=== PATIENT | female | born 2000 | race African-American/Black ===

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

== ENCOUNTER 2022-12-06 17:27 | Outpatient (REF) | payer MEDICAID, SELFPAY ==
[2022-12-06 17:32] LABS: Abs Immature Grans 0.04 10^3/uL (0.0-0.06); Absolute Basophil Count 0.04 10^3/uL (0.0-0.2); Absolute Eosinophil Count 0.19 10^3/uL (0.0-0.7); Absolute Lymphocyte Count 3.67 10^3/uL (1.2-3.4); Absolute Monocyte Count 0.72 10^3/uL (0.1-0.8); Absolute Neutrophil Count 5.75 10^3/uL (1.2-6.7); Basophils % 0.4; Eosinophils % 1.8; HCT 38.9 % (36.0-46.0); HGB 13.3 g/dL (11.2-15.7); Immature Grans % 0.4; Lymphocytes % 35.3; MCH 30.4 pg (27.0-33.0); MCHC 34.2 % (32.0-36.0); MCV 89 fL (80-95); MPV 9.4 fL (8.0-11.0); Monocytes % 6.9; Neutrophils % 55.2; Platelet Count 333 10^3/uL (130-400); RBC 4.37 10^6/uL (3.93-5.22); RDW 12.6 % (11.7-14.6); RDW-SD 41.7 fL; WBC 10.41 10^3/uL (4.4-10.8)
[2022-12-06 19:00] LABS: D-Dimer 130 ng/mlFEU (<500)
== END 2022-12-06 17:28 | disposition home or self-care (01) ==
LOC: LBN 17:27
PROVIDERS: PCP Nurse Practitioner Family; Visit Provider Nurse Practitioner Family
DX: J45.21 Mild intermittent asthma with (acute) exacerbation (principal)
CPT/HCPCS: 85025; 85379

== ENCOUNTER → 2022-12-06 17:54 | Outpatient (CLI) | payer MEDICAID, SELFPAY ==
--- NOTE | 2022-12-06 | DI.RAD_ITS ---
Exam(s) XR CHEST 2V PA LATERAL EXAM: XR CHEST 2V PA LATERAL CLINICAL HISTORY: [id number] TECHNIQUE: 2D digital imaging was performed. COMPARISON: No exams were available for comparison FINDINGS: HEART: Normal size. Aorta: Not dilated. PULMONARY VASCULATURE: Normal. LUNGS: Clear. PLEURAL SPACE: No pleural effusion or pneumothorax. BONE:Unremarkable for age. IMPRESSION: No acute abnormality. DATA REPOSITORY: RADIATION DOSE DELIVERED:
--- NOTE | 2022-12-06 17:41 | DI.VRAD_ITS ---
PROCEDURE INFORMATION: Exam: XR Chest Exam date and time: 12/06/2022 5:14 PM Age: 22 years old Clinical indication: Cough TECHNIQUE: Imaging protocol: Radiologic exam of the chest. Views: 2 views. COMPARISON: CR XR SCAPULA RT 12/26/2020 11:44 PM FINDINGS: Lungs: Unremarkable. No consolidation. Pleural spaces: Unremarkable. No pleural effusion. No pneumothorax. Heart/Mediastinum: Unremarkable. No cardiomegaly. Bones/joints: Unremarkable. IMPRESSION: No acute findings. Dictated and Authenticated by: Josh Ardon MD. Ordering:TREVER MCPHERSON MD
== END ==
PROVIDERS: PCP Nurse Practitioner Family; Visit Provider Nurse Practitioner Family
DX: J45.21 Mild intermittent asthma with (acute) exacerbation (principal)
CPT/HCPCS: 71046

== ENCOUNTER 2023-04-06 16:03 | Outpatient (REF) | payer MEDICAID, SELFPAY ==
[2023-04-08 14:11] LABS: Chlamydia Result Negative (Negative); GC Result Negative (Negative)
== END 2023-04-06 16:04 | disposition home or self-care (01) ==
LOC: LBN 16:03
PROVIDERS: PCP Nurse Practitioner Family; Visit Provider Advanced Practice Midwife
DX: N76.0 Acute vaginitis (principal); R10.2 Pelvic and perineal pain; Z11.3 Encounter for screening for infections with a predominantly sexual mode of transmission
CPT/HCPCS: 87491; 87591; 87480; 87510; 87660

== ENCOUNTER 2023-05-05 10:30 | Emergency (ER) | payer MEDICAID, SELFPAY ==
[2023-05-05 10:35] VITALS: BP 113/78; PULSE 78; RESP 18; TEMP 36.7; O2SAT 98
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
[2023-05-05 11:40] LABS: Abs Immature Grans 0.01 10^3/uL (0.0-0.06); Absolute Basophil Count 0.07 10^3/uL (0.0-0.2); Absolute Eosinophil Count 0.12 10^3/uL (0.0-0.7); Absolute Lymphocyte Count 2.45 10^3/uL (1.2-3.4); Absolute Monocyte Count 0.56 10^3/uL (0.1-0.8); Absolute Neutrophil Count 6.76 10^3/uL (1.2-6.7); Basophils % 0.7; Eosinophils % 1.2; HCT 38.6 % (36.0-46.0); HGB 13.2 g/dL (11.2-15.7); Immature Grans % 0.1; Lymphocytes % 24.6; MCH 29.9 pg (27.0-33.0); MCHC 34.2 % (32.0-36.0); MCV 87 fL (80-95); MPV 9.6 fL (8.0-11.0); Monocytes % 5.6; Neutrophils % 67.8; Platelet Count 322 10^3/uL (130-400); RBC 4.42 10^6/uL (3.93-5.22); RDW 12.3 % (11.7-14.6); RDW-SD 39.8 fL; WBC 9.97 10^3/uL (4.4-10.8)
[2023-05-05] MEDS: Normal Saline - Diluent 50 ML VIAL IJ (11:41)
[2023-05-05 11:42] LABS: Bilirubin Negative (Negative); Blood Negative (Negative); Clarity Clear (Clear); Glucose Negative (Negative); Ketones Negative (Negative); Leukocyte Esterase Negative (Negative); Nitrite Negative (Negative); Specific Gravity 1.025 (1.005-1.025)
[2023-05-05] MEDS: Omnipaque 350 MG/ML 500 ML BTL-Imaging package IJ (11:46)
[2023-05-05 11:51] LABS: ALT 22 U/L (14-59); AST 17 U/L (15-37); Albumin 3.7 g/dL (3.4-5.0); Alkaline Phosphatase 75 U/L (46-116); Anion Gap 9.1 mmol/L (3-11); BUN 16 mg/dL (7-18); Bilirubin, Total 0.4 mg/dL (0.2-1.0); CO2 23.9 mmol/L (21.0-32.0); CREATININE 0.6 mg/dL (0.55-1.02); Calcium 9.1 mg/dL (8.5-10.1); Chloride 106 mmol/L (98-107); Glucose 97 mg/dL (74-106); Lipase 18 U/L (16-77); Potassium 4.1 mmol/L (3.5-5.1); Sodium 139 mmol/L (136-145); Total Protein 7.8 g/dL (6.4-8.2)
--- NOTE | 2023-05-05 12:05 | DI.RAD_ITS ---
Exam(s) XR CHEST 2V PA LATERAL EXAM: XR CHEST 2V PA LATERAL CLINICAL HISTORY: left back pain TECHNIQUE: 2D digital imaging was performed of the chest. Two images were obtained. PA and lateral views were obtained. COMPARISON: CR,XR XR CHEST 2V PA LATERAL from 12/06/2022 FINDINGS: MEDIASTINUM: Normal. HEART: Normal. PULMONARY VASCULATURE: Normal. LUNGS: Clear. PLEURAL SPACE: No pleural effusion or pneumothorax. BONE:Within normal limits for the patient's age. OTHER FINDINGS:Normal. IMPRESSION: No acute pulmonary findings. DATA REPOSITORY: RADIATION DOSE DELIVERED:
[2023-05-05] MEDS: ACETAMINOPHEN 1,000 MG/100 ML BTL 400 MG IVPB (13:44)
[2023-05-05 13:45] VITALS: BP 118/68; PULSE 70; RESP 16; TEMP 37.4; O2SAT 97
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
== END 2023-05-05 13:55 | disposition home or self-care (01) ==
PROVIDERS: Emergency Provider Physician Assistant; PCP Nurse Practitioner Family
DX: S06.0X0A Concussion without loss of consciousness, initial encounter (principal); S39.011A Strain of muscle, fascia and tendon of abdomen, initial encounter; M54.2 Cervicalgia; M54.50 Low back pain, unspecified; V47.5XXA Car driver injured in collision with fixed or stationary object in traffic accident, initial encounter
CPT/HCPCS: 36415; 80048; 80053; 81025; 83690; 86850; 86900; 86901; 96374; 99285; 70450; 71046; 72125; 74177; 81003; 85025; 99284; J0131

== ENCOUNTER 2023-10-16 01:30 | Emergency (ER) | payer MEDICAID, SELFPAY ==
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
[2023-10-16 02:06] VITALS: BP 139/93; PULSE 98; RESP 14; TEMP 37; O2SAT 98
[2023-10-16 02:31] LABS: *AMPHETAMINES SCREEN URINE Negative (Negative); *BARBITURATES SCREEN URINE Negative (Negative); *BENZODIAZEPINES SCREEN URINE Negative (Negative); Cannabinoids THC Negative (Negative); Cocaine Screen,Urine Negative (Negative); METHADONE URINE SCREEN Negative (Negative); OPIATES URINE SCREEN Negative (Negative)
[2023-10-16 02:34] LABS: Tricyclic Antidepressants Negative (Negative)
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
[2023-10-16 03:08] LABS: COVID-19 PCR Negative (Negative); Influenza A PCR Negative (Negative); Influenza B PCR Negative (Negative); RSV PCR Negative (Negative)
[2023-10-16 03:10] LABS: ALT 30 U/L (14-59); AST 16 U/L (15-37); Albumin 3.6 g/dL (3.4-5.0); Alkaline Phosphatase 74 U/L (46-116); Anion Gap 7.7 mmol/L (3-11); BUN 18 mg/dL (7-18); Bilirubin, Total 0.23 mg/dL (0.2-1.0); CO2 26.3 mmol/L (21.0-32.0); CREATININE 1.3 mg/dL (0.55-1.02); Calcium 8.8 mg/dL (8.5-10.1); Chloride 105 mmol/L (98-107); Glucose 102 mg/dL (74-106); Potassium 3.7 mmol/L (3.5-5.1); Sodium 139 mmol/L (136-145); Total Protein 7.6 g/dL (6.4-8.2)
[2023-10-16 03:11] LABS: ETHANOL BLOOD < 3.0 mg/dL (<10)
[2023-10-16 03:12] LABS: Source Nasopharynx
[2023-10-16 03:18] LABS: TSH (W/Ref FT4) 3.27 uIU/mL (0.36-3.74)
[2023-10-16 03:21] LABS: Abs Immature Grans 0.03 10^3/uL (0.0-0.06); Absolute Basophil Count 0.05 10^3/uL (0.0-0.2); Absolute Eosinophil Count 0.33 10^3/uL (0.0-0.7); Absolute Lymphocyte Count 3.78 10^3/uL (1.2-3.4); Absolute Neutrophil Count 4.51 10^3/uL (1.2-6.7); Basophils % 0.5 %; Eosinophils % 3.6 %; HCT 38.7 % (36.0-46.0); HGB 13.1 g/dL (11.2-15.7); Immature Grans % 0.3 %; Lymphocytes % 41.1 %; MCH 30.1 pg (27.0-33.0); MCHC 33.9 % (32.0-36.0); MCV 89 fL (80-95); MPV 9.8 fL (8.0-11.0); Monocytes % 5.4 %; Neutrophils % 49.1 %; Platelet Count 305 10^3/uL (130-400); RBC 4.35 10^6/uL (3.93-5.22); RDW 12.1 % (11.7-14.6); RDW-SD 39.8 fL
[2023-10-16 03:43] LABS: Salicylate < 2.8 mg/dL (<2.8)
[2023-10-16 03:51] LABS: Acetaminophen < 2 ug/mL (10-30)
== END 2023-10-16 03:54 | disposition home or self-care (01) ==
PROVIDERS: Emergency Provider Student in an Organized Health Care Education/Training Program; PCP Registered Nurse Critical Care Medicine
DX: R45.851 Suicidal ideations (principal); F32.A Depression, unspecified
CPT/HCPCS: 80053; 80307; 81025; 87637; 99284; 80320; 80329; 84443; 85025

== ENCOUNTER 2023-12-17 11:02 | Emergency (ER) | payer MEDICAID, SELFPAY ==
[2023-12-17 11:07] VITALS: BP 107/72; PULSE 76; RESP 12; TEMP 36.7; O2SAT 98
[2023-12-17 11:30] LABS: Bilirubin Negative (Negative); Blood Negative (Negative); Clarity Clear (Clear); Glucose Negative (Negative); Ketones Negative (Negative); Leukocyte Esterase Trace (Negative); Nitrite Negative (Negative); Urobilinogen 0.2 mg/dL (Up to 0.2); pH 7.5 (5-8)
--- NOTE | 2023-12-17 11:30 | ED.GENADUL_ITS ---
Discharge Plan Disposition Patient Disposition: Home Discharge Details Clinical Impression: Pelvic pain Primary Care Provider: Coral Love ED Provider: Edna Sun Home Meds and New Rx's Prescriptions: No Action No Known Home Meds Discharge Instructions Additional Instructions: I have provided an outpatient ultrasound order. Diagnostic imaging will be [facility] you tomorrow to schedule an appointment to have this performed. Please call [facility] first thing in the morning to schedule follow-up appointment for further evaluation into your left lower quadrant pain. Return to emergency care if you develop new severe abdominal pain, associated fever/chills or vomiting associated pelvic pain, or if you are very worried and need to be rechecked again immediately Referrals: [facility] [Provider Group] Discharge Data Discharge Date/Time-TO BE ENTERED AT DEPARTURE: 12/17/23 12:00 HPI General Date/Time Provider Initiated Documentation: 12/17/23 11:09 . HPI Narrative: Etelvina is a 23-year-old female who presents to the emergency department today for evaluation of left lower quadrant pain. She reports that this started about 2 months ago, is described as a severe sharp stabbing pain that comes and goes, has recently become more prominent in frequency and severity. Pain is aggravated by twisting/bending or other movement of the abdomen when it occurs. Last episode was today when she arrived to the emergency department, has now resolved. She denies associated fever/chills, anorexia, change in p.o. intake, nausea/vomiting, change in bowel or bladder function. She does report that she tends to have some vaginal bleeding or discharge after an episode of pain. She denies significant gynecologic history. No history of STIs, , or gynecologic surgery. She does have a Mirena in place. LMP was this month. No history of bleeding disorders Physical exam reassuring. Abdomen is soft, nondistended, nontender to palpation with normoactive bowel sounds. Speculum exam unremarkable, IUD strings visualized, scant dark vaginal blood noted. Cervix appears healthy. No obvious uterine or adnexal tenderness on bimanual exam. Easy work of breathing, lung sounds clear bilaterally. Normal heart sounds. Overall history and physical exam reassuring. DDx includes but is not limited to: Ovarian cyst, ovarian dysfunction, fibroid. hCG negative, early or related complications unlikely. No red flags concerning for acute intra-abdominal pathology such as ovarian torsion requiring emergent labs or diagnostic imaging such as CT scan or ultrasound at this time. Overall workup today reassuring. Recommend outpatient ultrasound, order provided. Advise follow-up with [facility] and calling diagnostic imaging to schedule appointment. Reviewed red flags indicate need for return to emergency care. She voices agreement with plan of care. 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 Review of Systems Narrative: see hpi Exam Const General: cooperative, healthy appearing, comfortable, no acute distress, well developed and well groomed Nutritional Appearance: average body habitus Orientation: alert and oriented x3 Resp Effort & Inspection: normal respiratory effort and able to speak in complete sentences Auscultation: clear to auscultation bilaterally Cardio Rate: regular rate Rhythm: regular rhythm GI Inspection: normal to inspection and non-distended Palpation: soft, not firm, no pulsatile masses, not rigid and nontender Auscultation: normal bowel sounds General: No CVA tenderness External Female Exam: normal external appearance Speculum Exam - Vagina: normal appearance of the vagina, normal vaginal discharge and no lacerations Speculum Exam - Cervix: normal appearance of the cervix and nontender Bimanual Exam- Vagina & Uterus: normal bimanual exam and No tender Bimanual Exam- Adnexa, other: normal adnexae Back/Spine/Pelvis Back: no CVA tenderness Skin General skin exam: no rashes or lesions noted Course Vital Signs Vital signs: Vital Signs Temperature 36.7 C 12/17/23 11:07 Pulse 76 12/17/23 11:07 Respiratory Rate 12 12/17/23 11:07 Blood Pressure 107/72 12/17/23 11:07 Pulse Oximetry 98 12/17/23 11:07 Temperature 36.7 C 12/17/23 11:07 Pulse 76 12/17/23 11:07 Respiratory Rate 12 12/17/23 11:07 Respiratory Effort Normal 12/17/23 11:13 Blood Pressure 107/72 12/17/23 11:07 Pulse Oximetry 98 12/17/23 11:07 Oxygen Delivery Method Room Air 12/17/23 11:07 Oxygen Flow Rate 0 12/17/23 11:07 Pain Level 8 12/17/23 11:07 Comment 910 at worse 12/17/23 11:07 Lab/Test Results Lab/Test Results: POC- Test(urine) Negative Medical Decision Making Quality:SDOH Health Related Social Needs: No Data to Display PFSH All Active Problems (Updated 12/17/23 @ 11:42 by Edna Ziegler) IUD (intrauterine device) in place (Acute) Pelvic pain (Acute) Anxiety (Chronic) Thoughts of self harm (Acute) Contusion (Acute) Medical History Encounter for insertion of mirena IUD Encounter for counseling regarding contraception Encounter for screening examination for sexually transmitted disease Vulvitis Concussion (~2020) Social History Smoking/Tobacco Use Status: Never Smoking risk assessment performed?: Yes Alcohol Intake: current Alcohol Intake frequency: holidays/special occasions only Drug use: Occasionally Substance use type: marijuana Housing: apartment Do you feel safe at home: Yes Do you feel safe in your relationship?: Yes
[2023-12-17 11:35] LABS: Epithelial Cells Many HPF (Negative); RBC 0-2 HPF (0-2)
[2023-12-17 11:36] LABS: Bacteria Rare HPF (Negative); C & S Indicated? No; Casts Negative LPF (Negative); Crystals Negative HPF (Negative); Mucus Trace (Negative)
--- NOTE | 2023-12-17 11:51 | NUR.NOTE ---
Faxed to [facility] request for US pelvic transvaginal for LLQ pain x 2 months, associated w/vaginal bleeding. R/O ovarian cyst. To follow up with [facility] in 1 to 2 weeks.Nursing Note:
[2023-12-17 12:00] VITALS: BP 107/72; PULSE 76; RESP 12; TEMP 36.7; O2SAT 98
== END 2023-12-17 12:00 | disposition home or self-care (01) ==
PROVIDERS: Emergency Provider Nurse Practitioner Family; PCP Registered Nurse Critical Care Medicine
DX: R10.32 Left lower quadrant pain (principal)
CPT/HCPCS: 80048; 81025; 99282; 81003; 81015; 85025; 99283

== ENCOUNTER 2024-06-19 15:55 | Emergency (ER) | payer MEDICAID, SELFPAY ==
[2024-06-19 15:56] VITALS: BP 142/95; PULSE 80; RESP 18; TEMP 36.9; O2SAT 97
--- NOTE | 2024-06-19 16:09 | W.ED.GENAD ---
Discharge Plan Disposition Patient Disposition: Home Condition: Stable Discharge Details Clinical Impression: Vaginal bleeding Primary Care Provider: Coral Love ED Provider: Delvis Zarate Home Meds and New Rx's Prescriptions: Continued sertraline 50 mg tablet 25 mg PO DAILY Patient Comments: TAKE 1 TABLET BY MOUTH DAILY X 1 WEEK THEN INCREASE TO 2 TABLETS DAILY Discharge Instructions Additional Instructions: Follow-up with [facility], he can call their office to arrange for follow-up appointment. If you feel more ill or have severe worsening abdominal pain return to the emergency department for reevaluation. I would recommend taking 400 mg of ibuprofen every 4 hours. HPI General Mode of arrival: ambulatory. Date/Time Provider Initiated Documentation: 06/19/24 15:58. Limitations to Documentation: no limitations. Information obtained by: patient. History of Present Illness 23 year old F presents to the emergency department with the chief complaint of vaginal bleeding, described as mild, Patient started experiencing this day(s) (1) and it has been constant. No relieving factors improve symptom(s), No exacerbating factors reported . Patient notes denies chest pain and shortness of breath. 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 Review of Systems All systems reviewed & are unremarkable except as noted in HPI and below Constitutional Constitutional: Denies chills, Denies fever(s) and Denies weakness Cardiovascular Cardiovascular: Denies chest pain and Denies dyspnea Respiratory Respiratory: Denies cough and Denies dyspnea Genitourinary Genitourinary: Reports other (vaginal bleeding) Neurologic Neurologic: Denies weakness Psychiatric Psychiatric: Denies depression Exam Const General: no acute distress Orientation: alert HENMT Head: normal to inspection Ears: external ears normal General nose exam: external nose normal Mouth: moist mucous membranes Eyes General: appearance normal, both eyes and all related structures Neck Neck: normal visual inspection Resp Effort & Inspection: normal respiratory effort and able to speak in complete sentences Cardio Rate: regular rate GI Palpation: soft and nontender Skin General skin exam: no rashes or lesions noted Neuro General: patient alert and patient oriented x3 Extrem General: normal to inspection Psych Mental Status: mental status grossly normal Course Vital Signs Vital signs: Vital Signs Temperature 36.9 C 06/19/24 15:56 Pulse 80 06/19/24 15:56 Respiratory Rate 18 06/19/24 15:56 Blood Pressure 142/95 H 06/19/24 15:56 Pulse Oximetry 97 06/19/24 15:56 Temperature 36.9 C 06/19/24 15:56 Temperature Source Oral 06/19/24 15:56 Pulse 80 06/19/24 15:56 Respiratory Rate 18 06/19/24 15:56 Blood Pressure 142/95 H 06/19/24 15:56 Blood Pressure Position Sitting 06/19/24 15:56 Pulse Oximetry 97 06/19/24 15:56 Oxygen Delivery Method Room Air 06/19/24 15:56 Oxygen Flow Rate 0 06/19/24 15:56 Pain Level 5 06/19/24 16:07 Medical Decision Making 23-year-old female with no significant chronic medical problems comes in with 1 day of vaginal bleeding and states she had a period 2 weeks ago. She says she does not normally have abnormal periods like this. She does still has some intermittent lower pelvic discomfort she says it feels like it is in her uterus. She denies any vomiting, fevers, chills. She is stable on arrival, she has no abdominal tenderness. Given her complaint will check a CBC CMP hCG and UA and reassess. Labs unremarkable patient feels significantly better after dose of Toradol. Given reassuring workup I feel she is stable and can follow-up with [facility], return precautions given Differential Diagnosis Differential Diagnosis: Fibroid, polyp, PCOS Lab Data Lab results reviewed: Yes I reviewed the patient's lab results. Quality:SDOH Health Related Social Needs: No Data to Display PFSH All Active Problems (Updated 06/19/24 @ 17:34 by Delvis Zarate MD) Vaginal bleeding (Acute) Toe pain, left (Acute) Depressive disorder (Chronic) Migraine (Chronic) Exercise-induced asthma (Acute) Chronic post-traumatic stress disorder (PTSD) (Acute) IUD (intrauterine device) in place (Acute) Pelvic pain (Acute) Anxiety (Chronic) Thoughts of self harm (Acute) Contusion (Acute) Medical History Encounter for insertion of mirena IUD Encounter for counseling regarding contraception Encounter for screening examination for sexually transmitted disease Vulvitis Concussion (~2020) Social History Smoking/Tobacco Use Status: Never Smoking risk assessment performed?: Yes Alcohol Intake: current Alcohol Intake frequency: holidays/special occasions only Drug use: Occasionally Substance use type: marijuana Housing: apartment Do you feel safe at home: Yes Do you feel safe in your relationship?: Yes
[2024-06-19 16:17] LABS: Bilirubin Negative (Negative); Blood Moderate (Negative); Clarity Clear (Clear); Glucose Negative (Negative); Ketones Trace mg/dL (Negative); Leukocyte Esterase Small (Negative); Nitrite Negative (Negative); Urobilinogen 0.2 mg/dL (Up to 0.2); pH 7.5 (5-8)
[2024-06-19] MEDS: Ketorolac 15 MG/ML VIAL IVP (16:24)
[2024-06-19 16:25] LABS: Abs Immature Grans 0.04 10^3/uL (0.0-0.06); Absolute Basophil Count 0.05 10^3/uL (0.0-0.2); Absolute Eosinophil Count 0.22 10^3/uL (0.0-0.7); Absolute Lymphocyte Count 1.41 10^3/uL (1.2-3.4); Absolute Monocyte Count 0.74 10^3/uL (0.1-0.8); Basophils % 0.5 %; HCT 38.3 % (36.0-46.0); Immature Grans % 0.4 %; MCH 29.5 pg (27.0-33.0); MCHC 33.9 % (32.0-36.0); MCV 87 fL (80-95); MPV 9.5 fL (8.0-11.0); Monocytes % 6.8 %; Neutrophils % 77.3 %; Platelet Count 347 10^3/uL (130-400); RDW 12.2 % (11.7-14.6); RDW-SD 39.3 fL; WBC 10.88 10^3/uL (4.4-10.8)
[2024-06-19 16:28] LABS: Bacteria Negative HPF (Negative); Crystals Negative HPF (Negative); Epithelial Cells Moderate HPF (Negative); RBC 0-2 HPF (0-2); WBC 0-2 HPF (0-5)
[2024-06-19 16:29] LABS: Absolute Neutrophil Count 8.41 10^3/uL (1.2-6.7)
[2024-06-19 16:29] LABS: C & S Indicated? No/Sq. Contamination; Casts Negative LPF (Negative); Mucus Trace (Negative)
[2024-06-19 16:53] LABS: ALT 33 U/L (14-59); AST 21 U/L (15-37); Albumin 3.8 g/dL (3.4-5.0); Alkaline Phosphatase 87 U/L (46-116); Anion Gap 9.2 mmol/L (3-11); BUN 18 mg/dL (7-18); Bilirubin, Total 0.3 mg/dL (0.2-1.0); CO2 25.8 mmol/L (21.0-32.0); CREATININE 0.9 mg/dL (0.55-1.02); Calcium 9.2 mg/dL (8.5-10.1); Chloride 105 mmol/L (98-107); Estimated GFR 93.28 (mL/min/1.73m2); Glucose 92 mg/dL (74-106); Magnesium 1.8 mg/dL (1.8-2.4); Potassium 3.9 mmol/L (3.5-5.1); Sodium 140 mmol/L (136-145); TSH (W/Ref FT4) 1.85 uIU/mL (0.36-3.74); Total Protein 8.2 g/dL (6.4-8.2)
[2024-06-19 17:34] VITALS: BP 116/76; PULSE 89; RESP 20; O2SAT 98
== END 2024-06-19 17:40 | disposition home or self-care (01) ==
PROVIDERS: Emergency Provider Emergency Medicine; PCP Registered Nurse Critical Care Medicine
DX: N93.8 Other specified abnormal uterine and vaginal bleeding (principal); R10.32 Left lower quadrant pain
CPT/HCPCS: 36415; 80053; 81025; 86850; 86900; 86901; 96374; 99284; 81003; 81015; 83735; 84443; 85025; J1885

== ENCOUNTER 2024-09-17 07:27 | Outpatient (CLI) | payer MEDICAID, SELFPAY ==
--- NOTE | 2024-09-17 | DI.US_ITS ---
Exam(s) US PELVIS TRANSVAGINAL EXAM: US PELVIS TRANSVAGINAL CLINICAL HISTORY: LLQ PAIN, R10.32 TECHNIQUE: Transabdominal and transvaginal imaging was performed using standard protocol. COMPARISON: CT CT ABDOMEN PELVIS W from 05/05/2023 FINDINGS: The bladder is unremarkable. UTERUS: Retroverted. 5 x 3 x 4.7 cm Endometrium: 9 [address] . [address]UD [address]. The IUD appears somewhat inferiorly positioned, in the mid to lower uterine segment. This appears unchanged from the previous CT. Myometrium: Unremarkable. Cervix: Unremarkable. OVARIES: Right: Cyst or mass: None. Left: Cyst or mass: None. DOPPLER: Color: Symmetric and uniform flow to both ovaries. No hyperemia. CUL-DE-SAC: Free fluid: None. IMPRESSION: 1. The IUD is positioned in the mid to lower uterine segment which appears unchanged from the prior CT.. 2. Unremarkable bilateral ovaries. DATA REPOSITORY:
== END 2024-09-17 07:47 ==
LOC: DI 07:28
PROVIDERS: PCP Registered Nurse Critical Care Medicine; Visit Provider Physician Assistant Medical
DX: R10.32 Left lower quadrant pain (principal)
CPT/HCPCS: 76830; 76856

== ENCOUNTER 2024-10-14 14:43 | Outpatient (REF) | payer MEDICAID, SELFPAY ==
[2024-10-16 11:57] LABS: Chlamydia Result Negative (Negative); GC Result Negative (Negative)
== END 2024-10-14 14:44 | disposition home or self-care (01) ==
LOC: LBN 14:43
PROVIDERS: PCP Registered Nurse Critical Care Medicine; Visit Provider Obstetrics & Gynecology
DX: Z30.430 Encounter for insertion of intrauterine contraceptive device (principal); Z11.3 Encounter for screening for infections with a predominantly sexual mode of transmission
CPT/HCPCS: 87491; 87591